=== PATIENT | female | born 1950 | race Caucasian/White ===

== ENCOUNTER 2021-04-24 10:35 | Day surgery (SDC) | payer MEDICARE, BC ==
[~2021-04-24 10:35] MED LIST: Lactated Ringers 1,000 ML IV SCH; Lidocaine 1%/Sod Bicarbonate in NS 8.4% 1 ML Syringe IDERM PRN; Sodium Chloride 0.9% 10 ML Syringe FLUSH PRN
[2021-04-24] MEDS ORDERED: Lidocaine 1% 4 ML ONE (13:30)
[2021-04-24] MEDS ORDERED: Propofol 200 MG/20 ML SDV ONE ×2 (13:31→14:47)
[2021-04-24] MEDS ORDERED: Midazolam 1 MG/ML 2 ML SDV ONE (13:31)
--- NOTE | 2021-04-24 13:55 | PCM.PREANE ---
Preanesthetic Assessment - Procedure Proposed Procedure: colonoscopy, egd - Anesthesia/Transfusion/Family Hx Anesthesia History: No Prior Anesthesia Family History of Anesthesia Reaction: No Transfusion History: Prior Transfusion Without Reaction Intubation History: Unknown - Review of Systems General: No Symptoms Pulmonary: No Symptoms, Other (? HOLDEN never did test ) Cardiovascular: No Symptoms Gastrointestinal: No Symptoms Neurological: Headache (migraine history ) Other: Reports: None - Physical Assessment NPO Status Date: 04/24/21 NPO Status Time: 06:00 Vital Signs: Last Vital Signs Temp 37.1 C 04/24/21 11:30 Pulse 65 04/24/21 11:30 Resp 16 04/24/21 11:30 BP 153/71 H 04/24/21 11:30 Pulse Ox 97 04/24/21 11:30 Height: 1.68 m Weight: 76.204 kg ASA Class: 2 Mental Status: Alert & Oriented x3 Airway Class: Mallampati = 1 Dentition: Reports: Dentures (uppers, lower partial that "clicks in" very sturdy in place lower ) Thyro-Mental Finger Breadths: 3 Mouth Opening Finger Breadths: 5 ROM/Head Extension: Full Lungs: Clear to Auscultation, Normal Respiratory Effort Cardiovascular: Regular Rate, Regular Rhythm - Allergies Allergies/Adverse Reactions: Allergies Allergy/AdvReac Type Severity Reaction Status Date / Time aspirin Allergy throat Verified 04/24/21 12:19 swelling Penicillins Allergy Itching Verified 04/24/21 12:19 - Blood Blood Available: No - Anesthesia Plan Pre-Op Medication Ordered: None - Acknowledgements Anesthesia Type Planned: MAC Pt an Appropriate Candidate for the Planned Anesthesia: Yes Alternatives and Risks of Anesthesia Discussed w Pt/Guardian: Yes Pt/Guardian Understands and Agrees with Anesthesia Plan: Yes PreAnesthesia Questionnaire HEENT History: Reports: Glaucoma, Impaired Vision Cardiovascular History: Reports: High Cholesterol, Other (See Below) Other Cardiovascular History: Bradycardia Musculoskeletal History: Reports: Other (See Below) Other Musculoskeletal History: Bilateral medial/lateral epidondylitis, Left tennis elbow, overall joint pain, hammertoe, Neurological History: Reports: Migraines Endocrine/Metabolic History: Reports: Other (See Below) Other Endocrine/Metabolic History: Goiter Dermatologic History: Reports: Other (See Below) Other Dermatologic History: Dermatophytosis, Keratoderma, Ingrown toenails, rash - Past Surgical History GI Surgical History: Reports: Appendectomy, Colonoscopy Female Surgical History: Reports: Section, Hysterectomy, Other (See Below) - SUBSTANCE USE Tobacco Use Status *Q: Never Tobacco User Recreational Drug Use History: No - HOME MEDS Home Medications: Home Meds Ascorbate Calcium [Vitamin C] 1 tab PO DAILY 04/23/21 [History] Beta-Carotene(A) w/C & E/Min [Prosight] 1 tab PO DAILY 04/23/21 [History] Cholecalciferol (Vitamin D3) [Vitamin D3] 1 cap PO DAILY 04/23/21 [History] Latanoprost [Xalatan] 1 drop EYEBOTH BEDTIME 04/23/21 [History] Rizatriptan Benzoate [Rizatriptan] 5 mg PO DAILY 04/23/21 [History] - CURRENT (IN HOUSE) MEDS Current Meds: Current Medications Lactated Ringer's (Ringers, Lactated) 1,000 mls @ 125 mls/hr IV ASDIRECTED MINDY Stop: 04/24/21 23:00 Last Admin: 04/24/21 12:19 Dose: 125 mls/hr Documented by: Lidocaine/Sodium Bicarbonate (Lidocaine 1%/Sod Bicarbonate In Ns 8.4% 1 Ml Syringe) 0.25 ml IDERM ONETIME PRN PRN Reason: Prior to IV Start Stop: 04/24/21 18:00 Sodium Chloride (Sodium Chloride 0.9% 10 Ml Syringe) 10 ml FLUSH ASDIRECTED PRN PRN Reason: Keep Vein Open Stop: 04/24/21 18:00 Discontinued Medications Lidocaine HCl (Xylocaine-Mpf 1%) Confirm Administered Dose 4 mls @ as directed .ROUTE .STK-MED ONE Stop: 04/24/21 13:31 Midazolam HCl (Midazolam 1 Mg/Ml 2 Ml Sdv) Confirm Administered Dose 2 mg .ROUTE .STK-MED ONE Stop: 04/24/21 13:32 Propofol (Propofol 200 Mg/20 Ml Sdv) Confirm Administered Dose 400 mg .ROUTE .STK-MED ONE Stop: 04/24/21 13:32
--- NOTE | 2021-04-24 15:19 | PCM48HPAN ---
Post Anesthesia Note - EVALUATION WITHIN 48HRS OF ANESTHETIC Vital Signs in Normal Range: Yes Patient Participated in Evaluation: Yes Respiratory Function Stable: Yes Airway Patent: Yes Cardiovascular Function Stable: Yes Hydration Status Stable: Yes Pain Control Satisfactory: Yes Nausea and Vomiting Control Satisfactory: Yes Mental Status Recovered: Yes Vital Signs: Last Vital Signs Temp 37.1 C 04/24/21 11:30 Pulse 65 04/24/21 11:30 Resp 16 04/24/21 11:30 BP 153/71 H 04/24/21 11:30 Pulse Ox 97 04/24/21 11:30
--- NOTE | 2021-04-24 15:35 | PCM.PRNOTE ---
- Free Text/Narrative Note: Operative Report Date of Procedure: [] Pre Op Diagnosis: [] Post-Op Diagnosis: [] Operative Procedures: 1. EGD with biopsy 2. Colonoscopy to the cecum with biopsy Primary Surgeon: Kelly Green MD Anesthesia Provider: [] Anesthesia Technique: MAC IV Fluid Replacement, Intraop: []cc crystalloid Output, Urine Amount: []cc EBL in mLs: []cc Findings: 1. Hiatal hernia 2. [place] colored mucosa in the distal esophagus 3. Gastritis 4. colon polyps 5. Diverticulosis 6. Internal and external hemorrhoids Specimens: 1. Distal esophagus biopsies/z-line biopsies 2. gastric antrum biopsies 3. ascending colon polyps x2 4. Transverse colon polyp 5. Sigmoid colon polyp Drain/Tubes: None Indication: The patient is a 71-year-old lady who presented to the clinic with family history of colon cancer in a first degree relative as well as a personal history of colon polyps. The patient reported symptoms of periumbilical pain . The patient was consented for a diagnostic EGD and colonoscopy. Risks of bleeding, and perforation were discussed, and the patient agreed to the risks and wished to proceed. Description of the procedure: The patient was taken back to the endoscopy suite, and placed in the left lateral decubitus position. A bite block was placed. The patient was sedated with MAC anesthesia. The Olympus video endoscope was inserted into the oropharynx and guided under direct vision into the esophagus, stomach, and duodenum. The duodenal bulb and second portion of the duodenum were unrema rkable. The gastric antrum was inspected and cold biopsy forceps were used to take tissue samples for H. pylori. There was patchy erythema consistent with gastritis noted. The scope was withdrawn to the stomach and retroflexed. There was no increased fluid, food or secretions in the upper gastrointestinal tract. No erosions or ulcers were noted. The scope was withdrawn to the esophagus. A this point we noted a small sliding hiatal hernia. A 1cm segment of 2 tongues of salmon-colored mucosa concerning for Barretts esophagus changes were noted in the distal esophagus. This was biopsied in four quadrants with a cold biopsy forceps.. The endoscope was then withdrawn Next, anorectal examination was performed. Hemorrhoids were noted externally with some excess skin in this area. The scope was placed into the rectum and advanced to cecum. Upon reaching the cecum, and the patients cecum was entered. There was significant tortuosity of the colon. The ileocecal valve was well visualized. At this point, the scope was slowly withdrawn, paying attention to the mucosa. The patient had adequate bowel prep, the mucosa was visible after suctioning and washing. A 6mm flat polyp was seen and removed from the ascending colon with a jumbo cold biopsy forceps. A second 3mm flat polyp in the ascending colon was noted and removed with a jumbo cold biopsy forceps. A 3mm transverse colon polyp was noted and removed with the jumbo cold biopsy forceps. A semipedunculated 6mm polyp was seen and removed from the sigmoid colon with a jumbo cold biopsy forceps. In the rectum, scope was retroflexed and some hemorrhoidal tissue was noted. The scope was placed back in the lumen and excess air was aspirated. The scope was removed. The patient tolerated the procedure very well. Complications: None apparent Condition: The patient was transported to PACU in stable condition. Kelly Green MD General Surgery
--- NOTE | 2021-04-24 15:35 | PCM.OPNOTE ---
- General Post-Op/Procedure Note Date of Surgery/Procedure: 04/24/21 Operative Procedure(s): EGD and coloscopy Findings: 1. Hiatal hernia 2. [place] colored mucosa in the distal esophagus 3. Gastritis 4. colon polyps 5. Diverticulosis Pre Op Diagnosis: periumbilical pain, history of colon polyps, family history of colon cancer Post-Op Diagnosis: same Anesthesia Technique: MAC Primary Surgeon: Kelly Green Anesthesia Provider: Lulu Scott Pathology: 1. Antrum biopsy 2. GE junction biopsies 3. ascending colon polyps x2 4. Transverse colon polyp 5. Sigmoid polyp EBL in mLs: 0 Complications: none apparent Condition: Good
== END 2021-04-24 16:30 | disposition home or self-care (01) ==
LOC: JD.SDS 10:35
PROVIDERS: ATTEND Surgery
DX: Z12.11 Encounter for screening for malignant neoplasm of colon (principal); D12.2 Benign neoplasm of ascending colon; D12.3 Benign neoplasm of transverse colon; D12.5 Benign neoplasm of sigmoid colon; K44.9 Diaphragmatic hernia without obstruction or gangrene; K57.30 Diverticulosis of large intestine without perforation or abscess without bleeding; K64.8 Other hemorrhoids; K64.4 Residual hemorrhoidal skin tags; E78.00 Pure hypercholesterolemia, unspecified; K31.89 Other diseases of stomach and duodenum; K20.90 Esophagitis, unspecified without bleeding; Z86.010 Personal history of colon polyps; Z80.0 Family history of malignant neoplasm of digestive organs; Z90.49 Acquired absence of other specified parts of digestive tract; Z98.890 Other specified postprocedural states; Z88.0 Allergy status to penicillin; Z88.8 Allergy status to other drugs, medicaments and biological substances
CPT/HCPCS: 43239; 45380; J2250; J2704; J7120; 00813; 88305; 99100

== ENCOUNTER 2024-11-05 09:50 | Emergency (ER) | payer MEDICARE, BC ==
[2024-11-05 13:04] LABS: APPEARANCE,URINE CLEAR (Clear); BILIRUBIN,URINE NEGATIVE (Negative); COLOR,URINE YELLOW (Yellow); GLUCOSE,URINE NEGATIVE (Negative); KETONES,URINE 3+ (Negative); LEUKOCYTE ESTERASE,URINE NEGATIVE (Negative); NITRITE,URINE NEGATIVE (Negative); OCCULT BLOOD,URINE NEGATIVE (Negative); PROTEIN,URINE NEGATIVE (Negative); UROBILINOGEN,URINE 0.2 (0.2-1.0)
[2024-11-05] MEDS: predniSONE 10 MG Tab PO ONE (13:20)
[2024-11-05] MEDS: Acetaminophen 325 MG Tab PO ONE (13:21)
== END 2024-11-05 14:10 | disposition home or self-care (01) ==
LOC: JD.ED 09:50
DX: M70.71 Other bursitis of hip, right hip (principal); E78.00 Pure hypercholesterolemia, unspecified; Z90.710 Acquired absence of both cervix and uterus; Z88.6 Allergy status to analgesic agent; Z88.0 Allergy status to penicillin; Z79.899 Other long term (current) drug therapy
CPT/HCPCS: 74176; 81003; 99284; A9270; J7512